=== PATIENT | female | born 1995 | race Caucasian/White ===

== ENCOUNTER 2017-03-22 12:02 | Emergency (ER) | payer SELFPAY | END 2017-03-22 13:40 | disposition home or self-care (01) | LOC: ER1 12:02 | DX: S93.491A Sprain of other ligament of right ankle, initial encounter (principal); F17.210 Nicotine dependence, cigarettes, uncomplicated; W17.89XA Other fall from one level to another, initial encounter; Y92.830 Public park as the place of occurrence of the external cause | CPT/HCPCS: 73610; 73630; 99283 ==